=== PATIENT | female | born 1970 | race Caucasian/White ===

== ENCOUNTER 2017-11-17 11:27 | Emergency (ER) | payer BC ==
[~2017-11-17] VITALS: Ht 160 cm; Wt 65.8 kg
[~2017-11-17 11:27] MED LIST: ADVIL200 MG PO; AZO95 MG PO; CIPROFLOXACIN500 M1; LEVOTHROID25 MCG PO
[2017-11-17 12:36] LABS: APPEARANCE SL.HAZY ((CLEAR)); BILIRUBIN NEGATIVE; BLOOD NEGATIVE; COLOR YELLOW ((YELLOW)); GLUCOSE (STRIP) NEGATIVE; KETONES 20; LEUKOCYTES NEGATIVE; NITRITE NEGATIVE; PROTEIN (STRIP) 30; SPECIFIC GRAVITY 1.027 (1.000-1.030); UROBILINOGEN 0.2 MG/DL (0.2-1.0)
[2017-11-17 12:40] LABS: HEMATOCRIT 43.4 % (36.0-46.0); HEMOGLOBIN 14.9 G/DL (11.9-15.5); MCH 31.9 PG (29.0-34.0); MCHC 34.3 G/DL (30.0-36.0); MCV 92.9 FL (83-99); PLATELET COUNT 313 K/uL (156-360); RBC DIS.WIDTH-CV 11.8 % (11.8-14.6); RED BLOOD COUNT 4.67 M/uL (3.80-5.20)
[2017-11-17 12:47] LABS: BACTERIA RARE /HPF; EPITHELIAL CELLS 3+ /HPF; MUCUS 1+ /LPF; RED BLOOD CELLS 0-5 /HPF (0-5); UCUL ADDED? NO; WHITE BLOOD CELLS 0-5 /HPF (0-5)
[2017-11-17 12:49] LABS: CHLORIDE 103 mEq/L (99-109); POTASSIUM 4.1 mEq/L (3.7-5.4); SODIUM 135 mEq/L (136-147)
[2017-11-17 12:51] LABS: GLUCOSE 110 mg/dL (70-99)
[2017-11-17 12:55] LABS: CREATININE 0.8 mg/dL (0.6-1.3); GFR ESTIMATE (CALCULATED) > 59 mL/min/; UREA NITROGEN (BUN) 13 mg/dL (9-23)
[2017-11-17 13:39] LABS: ALBUMIN 4.2 g/dL (3.2-4.8)
[2017-11-17 13:41] LABS: TOTAL PROTEIN 8.1 g/dL (6.4-8.3)
[2017-11-17 13:43] LABS: TOTAL BILIRUBIN 0.6 mg/dL (0.0-1.0)
[2017-11-17 13:44] LABS: ALKALINE PHOSPHATASE 92 IU/L (3-129)
[2017-11-17 13:47] LABS: ALT (GPT) 41 IU/L (3-49); AST (GOT) 27 IU/L (2-34); DIRECT BILIRUBIN 0.3 mg/dL (0.0-0.3)
[2017-11-17] MEDS ORDERED: ZOFRAN4 MG PO (16:34)
[2017-11-17 16:56] VITALS: BP 115/67
== END 2017-11-17 16:57 | disposition home or self-care (01) ==
LOC: EME 11:27
DX: R11.0 Nausea (principal); R19.7 Diarrhea, unspecified; K21.9 Gastro-esophageal reflux disease without esophagitis; F41.9 Anxiety disorder, unspecified; E03.9 Hypothyroidism, unspecified; Z90.49 Acquired absence of other specified parts of digestive tract
CPT/HCPCS: 80048; 80076; 81003; 85027; 87177; 87493; 87506; 99281; 99283; J1885; J2405; J7030